=== PATIENT | female | born 1985 | race Caucasian/White ===

== ENCOUNTER → 2018-12-20 | Outpatient (CLI) | payer BC ==
[2014-03-19 17:08] VITALS: BP 123/76
--- NOTE | 2018-12-20 15:22 | RAD ---
PREG 1ST TRIMESTER History: No heart tones Comparison: None. Findings: Multiple transabdominal sonographic images of the pelvis are submitted. Cervix measured 4.4 cm. Uterus measured about 14.3 x 6.3 x 11.3 cm. There is anterior placenta. Not commented on by technologist, submitted images suggest complete placenta previa. There is a focus of hypoechogenicity of the uterus near gestational sac located closer to the lower uterine segment about 1.2 cm x 2.5. There is another focus of hyperechogenicity of the uterus near gestational sac about 2.9 cm greatest dimension. There is single intrauterine fetus, demonstrable cardiac activity 173 bpm. Exam does not accurately evaluate anatomy of the age of the . Subjectively amniotic fluid volume is within normal limits. [place]-rump length measurement of 4.79 cm corresponds with 11 weeks 4 days. Adjusted ultrasound age is 11 weeks 4 days with estimated delivery date by ultrasound 07/07/2019. LMP age 11 weeks 3 days with estimated delivery date of 07/08/2019. There is no abnormality of the maternal adnexal regions, ovaries not demonstrated. Impression: 1. There is demonstrable cardiac activity of single intrauterine fetus. Adjusted ultrasound age is 11 weeks 4 days with estimated delivery date by ultrasound of 07/07/2019. There are 2 foci of hypoechogenicity likely due to subchorionic hemorrhage. Submitted images suggest complete placenta previa for which follow-up advised. Electronically signed by: Daniel Kulkarni MD (12/20/2018 3:18 PM) [id number]
== END | disposition home or self-care (01) ==
LOC: US 14:05
PROVIDERS: ATTEND Family Medicine
DX: O09.521 Supervision of elderly multigravida, first trimester (principal); Z3A.11 11 weeks gestation of pregnancy
CPT/HCPCS: 76801

== ENCOUNTER → 2019-01-23 | Outpatient (CLI) | payer BC ==
[2014-03-19 17:08] VITALS: BP 123/76
--- NOTE | 2019-01-23 12:23 | RAD ---
EXAM: Obstetrics sonogram. HISTORY: Subchorionic hematoma follow-up. TECHNIQUE: Sonographic imaging of a gravid uterus was performed. COMPARISON: 12/20/2018. FINDINGS: There is a single intrauterine fetus in transverse presentation with a heart rate of 150 bpm. There is an anterior fundal placenta without evidence of placenta previa. There is a succenturiate placental lobe along the posterior fundus or contraction along the posterior wall of the uterus during the exam. The cervix is closed and measures 4.2 cm in length. The anatomic fluid volume is grossly normal. The previously suspected subchorionic hematomas are not seen. The biparietal diameter is 3.54 cm, corresponding to 16 weeks and 6 days. The head circumference is 12.98 cm, corresponding with 16 weeks and 4 days. The abdominal circumference is 10.9 8:00 PM, corresponding to 16 weeks and 6 days. The femoral length is 2.03 cm, corresponding with 16 weeks and 0 days. The estimated gestational age based on combined ultrasound measurements is 16 weeks and 4 days. The estimated weight is 158 g. The estimated due date is 07/06/2019. IMPRESSION: 1. Single intrauterine fetus with an estimated gestational age based on ultrasound measurements of 16 weeks and 4 days and heart rate of 150 bpm. 2. Succenturiate placental lobe along the posterior uterine fundus or uterine contraction during the exam. There is no evidence of placenta previa. 3. Note is made that the anatomy is not formally assessed at this early gestation. A formal anatomy survey can be performed at approximately 18-20 weeks gestation. Electronically signed by: Aleida Haywood MD (01/23/2019 12:20 PM) [place] [id number]
== END | disposition home or self-care (01) ==
LOC: US 10:50
PROVIDERS: ATTEND Family Medicine
DX: O20.9 Hemorrhage in early pregnancy, unspecified (principal); O09.522 Supervision of elderly multigravida, second trimester; Z3A.16 16 weeks gestation of pregnancy
CPT/HCPCS: 76805